=== PATIENT | male | born 1945 | race Caucasian/White ===

== ENCOUNTER → 2017-05-06 | Outpatient (CLI) | payer MEDICARE, BC ==
[~2017-05-06] MED LIST: ATOR10TA PO; FLOMAX; NEBI5TAB8 PO; ZOLE5INF IV
[2017-05-06 14:56] LABS: ANION GAP 9 MMOL/L (5-14); BLOOD UREA NITROGEN 20 MG/DL (7-18); BUN/CREATININE RATIO 24; CALCIUM 9.6 MG/DL (8.5-10.1); CARBON DIOXIDE 27 MMOL/L (21-32); CHLORIDE 103 MMOL/L (98-107); CREATININE SERUM 0.83 MG/DL (0.60-1.30); GFR ESTIMATED > 60; GLUCOSE 102 MG/DL (70-105); POTASSIUM 4.3 MMOL/L (3.6-5.0); SODIUM 139 MMOL/L (135-145)
== END ==
LOC: LAB 14:15
PROVIDERS: ATTEND Physician Assistant Surgical
DX: M81.8 Other osteoporosis without current pathological fracture (principal)
CPT/HCPCS: 36415; 80048

== ENCOUNTER → 2017-05-19 | Outpatient (CLI) | payer MEDICARE ==
[~2017-05-19] VITALS: Ht 162.6 cm; Wt 59.9 kg
[~2017-05-19] MED LIST changes: +ZOLEDRONATE 5 MG/100 ML (RECLAST) BTL IV ONE
[2017-05-19 15:05] VITALS: BP 130/86
== END ==
LOC: SDC 14:53
DX: M81.0 Age-related osteoporosis without current pathological fracture (principal)

== ENCOUNTER 2019-06-01 12:54 | Outpatient (CLI) | payer MEDICARE ==
[~2019-06-01] VITALS: Ht 162.6 cm; Wt 59.0 kg
[~2019-06-01 12:54] MED LIST changes: -ZOLEDRONATE 5 MG/100 ML (RECLAST) BTL IV ONE
[2019-06-01] MEDS ORDERED: ZOLEDRONATE (NON-FORMULARY) 100 ML IV ONE (13:15)
[2019-06-01 13:40] VITALS: BP 120/75
== END 2019-06-01 13:40 | disposition home or self-care (01) ==
LOC: SDC 12:54
PROVIDERS: ATTEND Physician Assistant Surgical
DX: M81.0 Age-related osteoporosis without current pathological fracture (principal)
CPT/HCPCS: 96365

== ENCOUNTER → 2021-02-19 | Outpatient (CLI) | payer MEDICARE ==
--- NOTE | 2021-02-19 11:30 | Diagnostic Imaging Report ---
Clinical indication: Follow-up from "Life line" scan. ICD 10 codes E 78.2 and I65.22. Comparison: None Exam: Real-time carotid Doppler duplex imaging is performed bilaterally. Peak systolic velocity, ICA/CCA peak systolic ratio, spectral analysis, and vascular morphology are studied. Findings: ARTERY VELOCITY Right Left CCA 0.62 m/s 0.66 m/s ICA 1.03 m/s 0.94 m/s ECA 0.42 m/s 0.75 m/s ICA/CCA 1.7 1.4 VERT.ART Antegrade Antegrade There is minimal atherosclerotic disease involving the bilateral carotid arteries. Impression: There is no grayscale or Doppler evidence of significant vascular stenosis. Dictated by: Dictated on workstation # [id number]
== END ==
LOC: RAD 09:45
PROVIDERS: ATTEND Family Medicine
DX: E78.2 Mixed hyperlipidemia (principal); I65.22 Occlusion and stenosis of left carotid artery
CPT/HCPCS: 93880